=== PATIENT | female | born 1995 | race Caucasian/White ===

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

== ENCOUNTER 2017-07-14 07:00 | Inpatient (IN) | payer BC ==
[~2017-07-14] VITALS: Ht 154.9 cm; Wt 76.4 kg
[2017-07-14] VITALS (30 sets, daily range): BP systolic 101–133; BP diastolic 55–88; PULSE 56–107; TEMP 98–98.5
[2017-07-14] MEDS ORDERED: PRENATAL MVI (07:23)
[2017-07-14 07:54] LABS: BASO % 0.4 % (0.0-2.0); EOS # 0.2 (0.0-0.7); GRAN % 65.6 % (42.2-75.2); LYMPH # 2.7 (1.2-3.4); LYMPH % 25.4 % (20.0-51.0); MEAN CELL VOLUME 87 fl (80.0-95.0); MEAN CORPUSCULAR HGB CONC 34 g/dl (33.0-37.0); MEAN PLATELET VOLUME 11.8 fl (7.4-10.4); MONO # 0.7 (0.1-0.6); MONO % 6.2 % (1.7-9.3); PLATELET COUNT 180 K/mm3 (130-400); RED BLOOD COUNT 3.93 M/mm3 (4.10-5.30); WHITE BLOOD COUNT 10.7 K/mm3 (4.8-10.8)
[2017-07-14 08:07] LABS: HEMATOCRIT 34.1 % (35.0-45.0); HEMOGLOBIN 11.6 g/dl (12.0-15.0); MEAN CORPUSCULAR HEMOGLOBIN 30 pg (26.0-32.0)
[2017-07-14] MEDS ORDERED: MOTRIN 800800 MG/TAB PO (09:19)
[2017-07-14] MEDS ORDERED: PERCOCET 325 MG1 TA2 PO (09:19)
[2017-07-15 01:45] VITALS: BP 118/66; PULSE 93; TEMP 98.6
[2017-07-15 07:00] VITALS: BP 110/70; PULSE 101; TEMP 98.5
[2017-07-15 13:10] VITALS: BP 118/73; PULSE 110; TEMP 98.5
[2017-07-15 17:15] VITALS: BP 126/75; PULSE 100; TEMP 98.5
[2017-07-15 20:10] VITALS: BP 114/68; PULSE 91; TEMP 98.2
[2017-07-16 09:27] VITALS: BP 115/72; PULSE 94; TEMP 97.7
== END 2017-07-16 12:00 | disposition home or self-care (01) | DRG 775 ==
LOC: OB 07:00 → LDR 07:00 → OB 16:30 → LDRO 07-22 09:51 → EDSTATUS 07-22 16:28
PROVIDERS: Obstetrics & Gynecology
PROC: 10E0XZZ Delivery of Products of Conception, External Approach (ICD-10-PCS; principal; 2017-07-14)
PROC: 0UQMXZZ Repair Vulva, External Approach (ICD-10-PCS; 2017-07-14)
DX: O70.0 First degree perineal laceration during delivery (principal); Z3A.39 39 weeks gestation of pregnancy; Z37.0 Single live birth
CPT/HCPCS: J2590; J7120